=== PATIENT | female | born 1960 | race African-American/Black ===

== ENCOUNTER 2019-04-30 13:20 | Inpatient (IN) | payer MEDICAID ==
[~2019-04-30] VITALS: Ht 172.7 cm; Wt 87.5 kg
[2019-04-30 14:13] LABS: BASOPHILS % 1.1 % (0.0-2.0); EOSINOPHILS % 8.1 % (0.0-5.0); HEMATOCRIT. 50.5 % (36.0-48.0); LYMPHOCYTES % 28.1 % (20.0-50.0); MEAN CORPUSCULAR HEMOGLOBIN 26.3 pg (28.0-32.0); MEAN CORPUSCULAR VOLUME 78.5 fL (81.0-99.0); MONOCYTES % 6.7 % (2.0-8.0); PLATELET 211 x1000/uL (130-400); RED BLOOD CELL COUNT 6.44 mill/uL (4.2-5.4); RED CELL DISTRIBUTION WIDTH 15.2 % (11.6-14.6)
[2019-04-30 14:17] LABS: CHLORIDE 106 mEq/L (98-107); INR 1.1; PROTHROMBIN TIME 11.8 sec (9.6-11.0)
[2019-04-30 14:20] LABS: ETHANOL BLOOD < 10 mg/dL
[2019-04-30] MEDS ORDERED: CLOPIDOGREL 75MG TABLET PO ONE (15:00)
[2019-04-30] MEDS ORDERED: LABETALOL HCL 100MG TABLET PO ONE (15:00)
[2019-04-30] MEDS ORDERED: ASPIRIN 325MG TABLET PO ONE (15:00)
[2019-04-30] MEDS ORDERED: ACETAMINOPHEN 325MG TABLET PO PRN (17:00)
[2019-04-30] MEDS ORDERED: ONDANSETRON HCL 4MG/2ML INJ IV PRN (17:00)
[2019-04-30 17:32] LABS: CLARITY URINE CLOUDY (CLEAR); COLOR URINE YELLOW (YELLOW); KETONES URINE TRACE (NEGATIVE); LEUKOCYTE ESTERASE URINE TRACE (NEGATIVE); NITRITE URINE POSITIVE (NEGATIVE); OCCULT BLOOD URINE NEGATIVE (NEGATIVE); PROTEIN URINE 1+ (NEGATIVE); SPECIFIC GRAVITY URINE 1.017 (1.005-1.030)
[2019-04-30 17:47] LABS: *AMPHETAMINES SCREEN URINE NEGATIVE (NEGATIVE); *BARBITURATES SCREEN URINE NEGATIVE (NEGATIVE); *BENZODIAZEPINES SCREEN URINE NEGATIVE (NEGATIVE); *COCAINE SCREEN URINE NEGATIVE (NEGATIVE); METHADONE URINE SCREEN NEGATIVE (NEGATIVE); OPIATES URINE SCREEN NEGATIVE (NEGATIVE)
[2019-04-30 17:48] LABS: CANNABINOID URINE SCREEN NEGATIVE (NEGATIVE); PHENCYCLIDINE URINE SCREEN NEGATIVE (NEGATIVE)
[2019-04-30 21:45] VITALS: BP 167/75
[2019-04-30 22:23] VITALS: BP 167/75
[2019-04-30] MEDS ORDERED: ASPI-1393 PO (22:28)
[2019-04-30] MEDS ORDERED: BENA20TA10 PO (22:28)
[2019-04-30] MEDS ORDERED: SPIR50TA5 PO (22:28)
[2019-04-30] MEDS ORDERED: NITR0.4T49 SL (22:28)
[2019-04-30] MEDS ORDERED: ATOR40TA70 PO (22:28)
[2019-04-30] MEDS ORDERED: FURO40TA5 PO (22:28)
[2019-04-30] MEDS ORDERED: DIGO125T82 PO (22:28)
[2019-04-30] MEDS ORDERED: FAMO20TA8 PO (22:28)
[2019-04-30] MEDS: ATORVASTATIN CALCIUM 40MG TABLET PO SCH (22:58)
[2019-05-01] VITALS (7 sets, daily range): BP systolic 138–183; BP diastolic 68–86
[2019-05-01] MEDS: CLONIDINE 0.1MG TABLET PO PRN ×2 (05:37→16:47)
[2019-05-01 07:30] LABS: EOSINOPHILS % 12.3 % (0.0-5.0); HEMOGLOBIN. 15.1 g/dL (12.0-16.0); LYMPHOCYTES % 28.6 % (20.0-50.0); MEAN CORPUSCULAR HEMOGLOBIN 26.2 pg (28.0-32.0); MEAN PLATELET VOLUME 7.6 fl (7.4-10.4); MONOCYTES % 9.9 % (2.0-8.0); NEUTROPHILS % 48.2 % (40.0-76.0); PLATELET 190 x1000/uL (130-400); RED BLOOD CELL COUNT 5.77 mill/uL (4.2-5.4); RED CELL DISTRIBUTION WIDTH 15.5 % (11.6-14.6)
[2019-05-01 07:56] LABS: CHLORIDE 106 mEq/L (98-107)
[2019-05-01] MEDS ORDERED: LOSARTAN POTASSIUM 50 MG TABLET PO SCH (08:00)
[2019-05-01] MEDS: ENOXAPARIN 40MG/0.4ML SYR SUBCUT SCH (09:00)
[2019-05-01] MEDS: CLOPIDOGREL 75MG TABLET PO SCH (09:00)
[2019-05-01] MEDS: AMLODIPINE 5MG TABLET PO SCH ×2 (09:00→20:29)
[2019-05-01] MEDS: IBUPROFEN 600MG TABLET PO PRN ×2 (11:15→21:43)
[2019-05-01] MEDS: CEFTRIAXONE 1 G PREMIX 50 ML IV SCH (19:01)
[2019-05-01] MEDS: ATORVASTATIN CALCIUM 40MG TABLET PO SCH (20:29)
[2019-05-02] VITALS: BP 119/64
[2019-05-02 04:00] VITALS: BP 115/63
[2019-05-02 06:51] LABS: CHLORIDE 105 mEq/L (98-107)
[2019-05-02 06:55] LABS: BASOPHILS % 1.1 % (0.0-2.0); EOSINOPHILS % 14.7 % (0.0-5.0); LYMPHOCYTES % 35.8 % (20.0-50.0); MEAN CORPUSCULAR HEMOGLOBIN 26.5 pg (28.0-32.0); MEAN CORPUSCULAR VOLUME 77.8 fL (81.0-99.0); MEAN PLATELET VOLUME 7.9 fl (7.4-10.4); MONOCYTES % 10.1 % (2.0-8.0); NEUTROPHILS % 38.3 % (40.0-76.0); PLATELET 187 x1000/uL (130-400); RED BLOOD CELL COUNT 5.66 mill/uL (4.2-5.4); RED CELL DISTRIBUTION WIDTH 15.3 % (11.6-14.6)
[2019-05-02 08:00] VITALS: BP 163/67
[2019-05-02] MEDS: LOSARTAN POTASSIUM 100 MG TABLET PO SCH (09:23)
[2019-05-02] MEDS: CLOPIDOGREL 75MG TABLET PO SCH (09:23)
[2019-05-02] MEDS: AMLODIPINE 5MG TABLET PO SCH ×2 (09:23→21:23)
[2019-05-02] MEDS: ENOXAPARIN 40MG/0.4ML SYR SUBCUT SCH (09:24)
[2019-05-02 11:36] VITALS: BP 155/72
[2019-05-02 15:42] VITALS: BP 168/79
[2019-05-02] MEDS: IBUPROFEN 600MG TABLET PO PRN (16:23)
[2019-05-02] MEDS: CEFTRIAXONE 1 G PREMIX 50 ML IV SCH (17:35)
[2019-05-02 20:00] VITALS: BP 203/91
[2019-05-02] MEDS: ATORVASTATIN CALCIUM 40MG TABLET PO SCH (21:22)
[2019-05-03] VITALS (7 sets, daily range): BP systolic 151–169; BP diastolic 71–153
[2019-05-03] MEDS: IBUPROFEN 600MG TABLET PO PRN ×2 (05:31→17:20)
[2019-05-03 06:52] LABS: BASOPHILS % 1.2 % (0.0-2.0); EOSINOPHILS % 10.6 % (0.0-5.0); HEMATOCRIT. 48.2 % (36.0-48.0); HEMOGLOBIN. 16.3 g/dL (12.0-16.0); LYMPHOCYTES % 34.1 % (20.0-50.0); MEAN CORPUSCULAR HEMOGLOBIN 26.4 pg (28.0-32.0); MEAN CORPUSCULAR VOLUME 78.1 fL (81.0-99.0); MEAN PLATELET VOLUME 7.8 fl (7.4-10.4); MONOCYTES % 8.4 % (2.0-8.0); NEUTROPHILS % 45.7 % (40.0-76.0); PLATELET 207 x1000/uL (130-400); RED BLOOD CELL COUNT 6.18 mill/uL (4.2-5.4); RED CELL DISTRIBUTION WIDTH 15.4 % (11.6-14.6)
[2019-05-03 07:00] LABS: CHLORIDE 105 mEq/L (98-107)
[2019-05-03] MEDS: AMLODIPINE 5MG TABLET PO SCH (10:00)
[2019-05-03] MEDS: CLOPIDOGREL 75MG TABLET PO SCH (10:00)
[2019-05-03] MEDS: ENOXAPARIN 40MG/0.4ML SYR SUBCUT SCH (10:01)
[2019-05-03] MEDS: LOSARTAN POTASSIUM 100 MG TABLET PO SCH (10:01)
[2019-05-03] MEDS: CEFTRIAXONE 1 G PREMIX 50 ML IV SCH (17:20)
== END 2019-05-03 18:10 | DRG 45 ==
LOC: ER 13:20 → 8WST 16:09 → EDBEDREQTM 16:14 → EDBEDREQ 16:14 → ENRESERV 19:57
PROVIDERS: ADMIT Internal Medicine; ATTEND Internal Medicine
DX: I63.9 Cerebral infarction, unspecified (principal); I11.0 Hypertensive heart disease with heart failure; I50.42 Chronic combined systolic (congestive) and diastolic (congestive) heart failure; G81.94 Hemiplegia, unspecified affecting left nondominant side; G90.8 Other disorders of autonomic nervous system; N39.0 Urinary tract infection, site not specified; Z86.73 Personal history of transient ischemic attack (TIA), and cerebral infarction without residual deficits; Z87.891 Personal history of nicotine dependence; Z79.899 Other long term (current) drug therapy
CPT/HCPCS: 36415; 70544; 70551; 71045; 80048; 80061; 80305; 80320; 83880; 84484; 93005; 93306; 93880; 93970; 97110; 97112; 97163; 97166; 97530; 99291; J0696; J1650; J7050; G0480

== ENCOUNTER 2019-06-03 16:31 | Inpatient (IN) | payer MEDICAID ==
[2019-06-02 23:30] VITALS: BP 151/68
[~2019-06-03] VITALS: Ht 185.4 cm; Wt 80.3 kg
[~2019-06-03 16:31] MED LIST: ASPI-1393 PO; ATOR40TA70 PO; BENA20TA10 PO; DIGO125T82 PO; FAMO20TA8 PO; FURO40TA5 PO; NITR0.4T49 SL; SPIR50TA5 PO
[2019-06-03] MEDS ORDERED: SODIUM CHLORIDE 0.9% 1,000 ML IV ONE (20:06)
[2019-06-03 20:40] LABS: BASOPHILS % 0.7 % (0.0-2.0); HEMATOCRIT. 43.6 % (36.0-48.0); HEMOGLOBIN. 14.7 g/dL (12.0-16.0); LYMPHOCYTES % 38.9 % (20.0-50.0); MEAN CORPUSCULAR HEMOGLOBIN 26.2 pg (28.0-32.0); MEAN CORPUSCULAR VOLUME 77.6 fL (81.0-99.0); MEAN PLATELET VOLUME 7.6 fl (7.4-10.4); MONOCYTES % 8.2 % (2.0-8.0); NEUTROPHILS % 50.2 % (40.0-76.0); PLATELET 216 x1000/uL (130-400); RED BLOOD CELL COUNT 5.62 mill/uL (4.2-5.4); RED CELL DISTRIBUTION WIDTH 17.6 % (11.6-14.6)
[2019-06-03 20:42] LABS: CHLORIDE 105 mEq/L (98-107)
[2019-06-03 21:23] LABS: CLARITY URINE CLOUDY (CLEAR); COLOR URINE YELLOW (YELLOW); KETONES URINE NEGATIVE (NEGATIVE); LEUKOCYTE ESTERASE URINE TRACE (NEGATIVE); NITRITE URINE NEGATIVE (NEGATIVE); OCCULT BLOOD URINE NEGATIVE (NEGATIVE); PH URINE 5.5 (4.5-8.0); PROTEIN URINE NEGATIVE (NEGATIVE); SPECIFIC GRAVITY URINE 1.012 (1.005-1.030)
[2019-06-03] MEDS ORDERED: CEFTRIAXONE 1 G PREMIX 50 ML IV ONE (21:45)
[2019-06-03] MEDS ORDERED: ASPIRIN 325MG EC TABLET PO ONE (21:45)
[2019-06-03] MEDS ORDERED: ONDANSETRON HCL 4MG/2ML INJ IV PRN (23:15)
[2019-06-03 23:30] VITALS: BP 157/68
[2019-06-04] MEDS: SODIUM CHLORIDE 0.9% 1,000 ML IV SCH ×3 (01:12→19:27)
[2019-06-04 04:00] VITALS: BP 165/70
[2019-06-04 08:00] VITALS: BP 110/80
[2019-06-04 08:08] LABS: CREATINE KINASE 59 IU/L (26-192)
[2019-06-04 08:09] LABS: CREATINE KINASE MB FRACTION 1.2 ng/mL (0.5-3.6)
[2019-06-04] MEDS: ENOXAPARIN 40MG/0.4ML SYR SUBCUT SCH (09:13)
[2019-06-04] MEDS: THIAMINE HCL 100MG TABLET PO SCH (09:13)
[2019-06-04 12:00] VITALS: BP 159/64
[2019-06-04 15:53] LABS: CHLORIDE 110 mEq/L (98-107)
[2019-06-04 16:00] VITALS: BP 178/70
[2019-06-04 16:03] LABS: CREATINE KINASE 53 IU/L (26-192)
[2019-06-04 16:06] LABS: CREATINE KINASE MB FRACTION 1.2 ng/mL (0.5-3.6)
[2019-06-04] MEDS: HYDROCODONE/ACETAMINOPHEN 5/325MG TABLET PO PRN (16:22)
[2019-06-04 20:00] VITALS: BP 151/70
[2019-06-05] MEDS: POTASSIUM CHLORIDE 20MEQ TABLET SR PO SCH ×2 (00:22→08:47)
[2019-06-05] MEDS: DIGOXIN 125MCG TABLET PO SCH ×2 (00:22→08:44)
[2019-06-05] MEDS: SPIRONOLACTONE 50MG TABLET PO SCH ×2 (00:22→08:51)
[2019-06-05 00:37] VITALS: BP 169/91
[2019-06-05 04:00] VITALS: BP 165/91
[2019-06-05 06:49] LABS: BASOPHILS % 0.7 % (0.0-2.0); EOSINOPHILS % 2.1 % (0.0-5.0); HEMATOCRIT. 44.2 % (36.0-48.0); HEMOGLOBIN. 15.3 g/dL (12.0-16.0); LYMPHOCYTES % 32.2 % (20.0-50.0); MEAN CORPUSCULAR HEMOGLOBIN 26.8 pg (28.0-32.0); MEAN CORPUSCULAR VOLUME 77.3 fL (81.0-99.0); MEAN PLATELET VOLUME 7.6 fl (7.4-10.4); MONOCYTES % 8.7 % (2.0-8.0); NEUTROPHILS % 56.3 % (40.0-76.0); PLATELET 207 x1000/uL (130-400); RED BLOOD CELL COUNT 5.71 mill/uL (4.2-5.4); RED CELL DISTRIBUTION WIDTH 17.3 % (11.6-14.6)
[2019-06-05 07:30] LABS: CHLORIDE 107 mEq/L (98-107)
[2019-06-05 08:12] VITALS: BP 148/84
[2019-06-05] MEDS: SODIUM CHLORIDE 0.9% 1,000 ML IV SCH ×2 (08:43→18:10)
[2019-06-05] MEDS: THIAMINE HCL 100MG TABLET PO SCH (08:44)
[2019-06-05] MEDS: ENOXAPARIN 40MG/0.4ML SYR SUBCUT SCH (08:44)
[2019-06-05] MEDS: LORAZEPAM 2MG/ML CPJ IV PRN ×2 (08:44→18:11)
[2019-06-05 12:20] VITALS: BP 154/86
[2019-06-05 16:00] VITALS: BP 177/88
[2019-06-05] MEDS: CLOPIDOGREL 75MG TABLET PO SCH (18:22)
[2019-06-05] MEDS: ASPIRIN 81MG TABLET PO SCH (18:22)
[2019-06-05 20:00] VITALS: BP 148/53
[2019-06-05] MEDS: ATORVASTATIN CALCIUM 40MG TABLET PO SCH (21:18)
[2019-06-06] VITALS: BP 159/72
[2019-06-06] MEDS: SODIUM CHLORIDE 0.9% 1,000 ML IV SCH ×3 (01:58→22:04)
[2019-06-06 04:00] VITALS: BP 164/87
[2019-06-06 08:00] VITALS: BP 170/77
[2019-06-06] MEDS: SPIRONOLACTONE 50MG TABLET PO SCH (09:24)
[2019-06-06] MEDS: CLOPIDOGREL 75MG TABLET PO SCH (09:24)
[2019-06-06] MEDS: DIGOXIN 125MCG TABLET PO SCH (09:24)
[2019-06-06] MEDS: POTASSIUM CHLORIDE 20MEQ TABLET SR PO SCH (09:25)
[2019-06-06] MEDS: ASPIRIN 81MG TABLET PO SCH (09:25)
[2019-06-06] MEDS: THIAMINE HCL 100MG TABLET PO SCH (09:25)
[2019-06-06] MEDS: ENOXAPARIN 40MG/0.4ML SYR SUBCUT SCH (09:25)
[2019-06-06 12:00] VITALS: BP 132/65
[2019-06-06 16:00] VITALS: BP 153/79
[2019-06-06 20:00] VITALS: BP 159/74
[2019-06-06] MEDS: ATORVASTATIN CALCIUM 40MG TABLET PO SCH (21:21)
[2019-06-06] MEDS: HYDROCODONE/ACETAMINOPHEN 5/325MG TABLET PO PRN (21:22)
[2019-06-07] VITALS: BP 168/75
[2019-06-07 04:00] VITALS: BP 172/87
[2019-06-07] MEDS: SODIUM CHLORIDE 0.9% 1,000 ML IV SCH (06:22)
[2019-06-07 08:00] VITALS: BP 180/84
[2019-06-07] MEDS: ENOXAPARIN 40MG/0.4ML SYR SUBCUT SCH (09:18)
[2019-06-07] MEDS: SPIRONOLACTONE 50MG TABLET PO SCH (09:18)
[2019-06-07] MEDS: CLOPIDOGREL 75MG TABLET PO SCH (09:19)
[2019-06-07] MEDS: ASPIRIN 81MG TABLET PO SCH (09:19)
[2019-06-07] MEDS: THIAMINE HCL 100MG TABLET PO SCH (09:19)
[2019-06-07] MEDS: POTASSIUM CHLORIDE 20MEQ TABLET SR PO SCH (09:19)
[2019-06-07] MEDS: DIGOXIN 125MCG TABLET PO SCH (09:22)
[2019-06-07] MEDS: HYDROCODONE/ACETAMINOPHEN 5/325MG TABLET PO PRN (11:34)
[2019-06-07 12:00] VITALS: BP 172/79
[2019-06-07 15:47] LABS: BASOPHILS % 0.6 % (0.0-2.0); HEMATOCRIT. 46.5 % (36.0-48.0); HEMOGLOBIN. 16.2 g/dL (12.0-16.0); LYMPHOCYTES % 37.2 % (20.0-50.0); MEAN CORPUSCULAR HEMOGLOBIN 26.9 pg (28.0-32.0); MEAN CORPUSCULAR VOLUME 77.2 fL (81.0-99.0); MEAN PLATELET VOLUME 7.5 fl (7.4-10.4); MONOCYTES % 8.1 % (2.0-8.0); NEUTROPHILS % 52.1 % (40.0-76.0); PLATELET 226 x1000/uL (130-400); RED BLOOD CELL COUNT 6.02 mill/uL (4.2-5.4); RED CELL DISTRIBUTION WIDTH 17.6 % (11.6-14.6)
[2019-06-07 15:56] LABS: CHLORIDE 103 mEq/L (98-107)
[2019-06-07 16:00] VITALS: BP 165/94
[2019-06-07 16:17] LABS: DIGOXIN 0.6 ng/mL (0.9-2.0)
[2019-06-07 17:06] VITALS: BP 165/94
== END 2019-06-07 20:05 | DRG 45 ==
LOC: ER 16:31 → 6WST 21:48 → EDBEDREQTM 21:55 → EDBEDREQ 21:55 → ENRESERV 22:08 → SUPCPDRO 23:13
PROVIDERS: ADMIT Internal Medicine Nephrology; ATTEND Internal Medicine Nephrology
DX: I63.9 Cerebral infarction, unspecified (principal); G93.41 Metabolic encephalopathy; I11.0 Hypertensive heart disease with heart failure; E78.00 Pure hypercholesterolemia, unspecified; E87.6 Hypokalemia; Z86.73 Personal history of transient ischemic attack (TIA), and cerebral infarction without residual deficits; W19.XXXA Unspecified fall, initial encounter; Y92.009 Unspecified place in unspecified non-institutional (private) residence as the place of occurrence of the external cause
CPT/HCPCS: 36415; 70551; 71045; 80048; 80162; 82550; 82553; 83880; 84484; 93005; 96365; 97162; 99285; J0696; J1650; J2060; J2405; J7030

== ENCOUNTER 2019-06-15 20:07 | Inpatient (IN) | payer MEDICAID ==
[~2019-06-15] VITALS: Ht 170.2 cm; Wt 78.2 kg
[2019-06-15 22:46] LABS: EOSINOPHILS % 1.9 % (0.0-5.0); HEMATOCRIT. 39.9 % (36.0-48.0); HEMOGLOBIN. 13.7 g/dL (12.0-16.0); LYMPHOCYTES % 28.9 % (20.0-50.0); MEAN CORPUSCULAR HEMOGLOBIN 26.8 pg (28.0-32.0); MEAN PLATELET VOLUME 7.4 fl (7.4-10.4); NEUTROPHILS % 59.2 % (40.0-76.0); PLATELET 239 x1000/uL (130-400); RED BLOOD CELL COUNT 5.12 mill/uL (4.2-5.4); RED CELL DISTRIBUTION WIDTH 18.3 % (11.6-14.6)
[2019-06-15 22:52] LABS: CHLORIDE 101 mEq/L (98-107)
[2019-06-16] VITALS (7 sets, daily range): BP systolic 103–156; BP diastolic 63–74
[2019-06-16] MEDS ORDERED: ACETAMINOPHEN 325MG TABLET PO PRN (01:00)
[2019-06-16] MEDS ORDERED: HYDROCODONE/ACETAMINOPHEN 5/325MG TABLET PO PRN (01:00)
[2019-06-16] MEDS ORDERED: DOCUSATE SODIUM 100MG CAPSULE PO PRN (01:00)
[2019-06-16] MEDS ORDERED: ONDANSETRON HCL 4MG/2ML INJ IV PRN (01:00)
[2019-06-16] MEDS ORDERED: IPRATROPIUM/ALBUTEROL 0.5-3(2.5)MG/3ML NEB INH PRN (01:00)
[2019-06-16] MEDS ORDERED: MAGNESIUM/ALUMINUM HYDROXIDE/SIMETHICONE 30ML UDC PO PRN (01:00)
[2019-06-16] MEDS: CLONIDINE 0.1MG TABLET PO PRN (08:11)
[2019-06-16] MEDS: ASPIRIN 81MG EC TABLET PO SCH (08:11)
[2019-06-16] MEDS: ENOXAPARIN 40MG/0.4ML SYR SUBCUT SCH (08:16)
[2019-06-16 10:23] LABS: BASOPHILS % 0.6 % (0.0-2.0); EOSINOPHILS % 2.5 % (0.0-5.0); HEMATOCRIT. 39.1 % (36.0-48.0); HEMOGLOBIN. 13.4 g/dL (12.0-16.0); LYMPHOCYTES % 31.9 % (20.0-50.0); MEAN CORPUSCULAR HEMOGLOBIN 26.9 pg (28.0-32.0); MEAN CORPUSCULAR VOLUME 78.7 fL (81.0-99.0); MEAN PLATELET VOLUME 7.3 fl (7.4-10.4); MONOCYTES % 9.9 % (2.0-8.0); NEUTROPHILS % 55.1 % (40.0-76.0); PLATELET 211 x1000/uL (130-400); RED BLOOD CELL COUNT 4.97 mill/uL (4.2-5.4); RED CELL DISTRIBUTION WIDTH 18.6 % (11.6-14.6)
[2019-06-16 10:46] LABS: LDL CHOLESTEROL 55 mg/dL (5-100)
[2019-06-16 10:48] LABS: CREATINE KINASE 59 IU/L (26-192)
[2019-06-16 10:49] LABS: HDL CHOLESTEROL 38 mg/dL (40-59)
[2019-06-16 11:01] LABS: CLARITY URINE CLEAR (CLEAR); COLOR URINE YELLOW (YELLOW); KETONES URINE NEGATIVE (NEGATIVE); LEUKOCYTE ESTERASE URINE TRACE (NEGATIVE); NITRITE URINE NEGATIVE (NEGATIVE); OCCULT BLOOD URINE NEGATIVE (NEGATIVE); PH URINE 5.5 (4.5-8.0); PROTEIN URINE NEGATIVE (NEGATIVE)
[2019-06-16 11:28] LABS: *BARBITURATES SCREEN URINE NEGATIVE (NEGATIVE); *BENZODIAZEPINES SCREEN URINE NEGATIVE (NEGATIVE); *COCAINE SCREEN URINE NEGATIVE (NEGATIVE)
[2019-06-16 11:29] LABS: CANNABINOID URINE SCREEN NEGATIVE (NEGATIVE); METHADONE URINE SCREEN NEGATIVE (NEGATIVE); OPIATES URINE SCREEN NEGATIVE (NEGATIVE); PHENCYCLIDINE URINE SCREEN NEGATIVE (NEGATIVE)
[2019-06-16 11:44] LABS: *AMPHETAMINES SCREEN URINE NEGATIVE (NEGATIVE)
[2019-06-16 18:24] LABS: CREATINE KINASE 50 IU/L (26-192)
[2019-06-16 18:25] LABS: CREATINE KINASE MB FRACTION 1.4 ng/mL (0.5-3.6)
[2019-06-17] VITALS: BP 176/87
[2019-06-17] MEDS: CLONIDINE 0.1MG TABLET PO PRN (01:05)
[2019-06-17 04:00] VITALS: BP 190/84
[2019-06-17] MEDS ORDERED: HYDRALAZINE 20MG/ML VIAL IV PRN (05:30)
[2019-06-17 07:26] LABS: BASOPHILS % 0.8 % (0.0-2.0); EOSINOPHILS % 1.9 % (0.0-5.0); HEMATOCRIT. 42.6 % (36.0-48.0); LYMPHOCYTES % 28.4 % (20.0-50.0); MEAN CORPUSCULAR HEMOGLOBIN 26.9 pg (28.0-32.0); MEAN CORPUSCULAR VOLUME 76.3 fL (81.0-99.0); MEAN PLATELET VOLUME 7.3 fl (7.4-10.4); MONOCYTES % 8.7 % (2.0-8.0); NEUTROPHILS % 60.2 % (40.0-76.0); PLATELET 255 x1000/uL (130-400); RED BLOOD CELL COUNT 5.58 mill/uL (4.2-5.4); RED CELL DISTRIBUTION WIDTH 18.7 % (11.6-14.6)
[2019-06-17 07:36] LABS: CHLORIDE 104 mEq/L (98-107)
[2019-06-17 08:00] VITALS: BP 146/73
[2019-06-17] MEDS: ASPIRIN 81MG EC TABLET PO SCH (08:45)
[2019-06-17] MEDS: ENOXAPARIN 40MG/0.4ML SYR SUBCUT SCH (08:46)
[2019-06-17 12:00] VITALS: BP 138/71
[2019-06-17 16:00] VITALS: BP 147/67
[2019-06-17] MEDS: AMLODIPINE 5MG TABLET PO SCH ×2 (17:18→20:42)
[2019-06-17 20:00] VITALS: BP 159/78
[2019-06-18] VITALS: BP 156/78
[2019-06-18 04:00] VITALS: BP 165/65
[2019-06-18 08:00] VITALS: BP 136/84
[2019-06-18] MEDS: ASPIRIN 81MG EC TABLET PO SCH (09:53)
[2019-06-18] MEDS: AMLODIPINE 5MG TABLET PO SCH (09:53)
[2019-06-18 11:26] VITALS: BP 130/80
[2019-06-18] MEDS ORDERED: LOSARTAN POTASSIUM 25 MG TABLET PO SCH (11:30)
[2019-06-18] MEDS: ENOXAPARIN 40MG/0.4ML SYR SUBCUT SCH (11:40)
[2019-06-18 12:00] VITALS: BP 163/83
== END 2019-06-18 14:00 | DRG 45 ==
LOC: ER 20:07 → 5WST 23:21 → ENRESERV 06-16 00:12
PROVIDERS: ADMIT Internal Medicine; ATTEND Internal Medicine
DX: I63.9 Cerebral infarction, unspecified (principal); I11.0 Hypertensive heart disease with heart failure; E87.1 Hypo-osmolality and hyponatremia; F03.90 Unspecified dementia, unspecified severity, without behavioral disturbance, psychotic disturbance, mood disturbance, and anxiety; I50.32 Chronic diastolic (congestive) heart failure; G81.94 Hemiplegia, unspecified affecting left nondominant side; J44.9 Chronic obstructive pulmonary disease, unspecified; I25.10 Atherosclerotic heart disease of native coronary artery without angina pectoris; Z79.02 Long term (current) use of antithrombotics/antiplatelets; Z87.891 Personal history of nicotine dependence; I34.0 Nonrheumatic mitral (valve) insufficiency
CPT/HCPCS: 36415; 71045; 80048; 80061; 80305; 81003; 82550; 82553; 83735; 83880; 84443; 84484; 93005; 93306; 93970; 99285; J0360; J1650

== ENCOUNTER 2020-08-09 04:43 | Emergency (ER) | payer MEDICAID ==
[~2020-08-09] VITALS: Ht 175.3 cm; Wt 76.0 kg
[~2020-08-09 04:43] MED LIST changes: -ASPI-1393 PO; +ASPI-1497 PO; +DIGO125T80 PO; -DIGO125T82 PO
[2020-08-09] MEDS ORDERED: METHYLPREDNISOLONE SOD SUCC 125 MG/2 ML VIAL IM ONE (08:45)
[2020-08-09] MEDS ORDERED: LORATADINE 10MG TABLET PO SCH (09:00)
[2020-08-09] MEDS ORDERED: ONDANSETRON 4MG ODT PO ONE (10:00)
[2020-08-09 12:34] LABS: BASOPHILS % 0.2 % (0.0-2.0); EOSINOPHILS % 0.1 % (0.0-5.0); HEMATOCRIT. 43.6 % (36.0-48.0); HEMOGLOBIN. 15.1 g/dL (12.0-16.0); LYMPHOCYTES % 10.3 % (20.0-50.0); MEAN CORPUSCULAR HEMOGLOBIN 29.2 pg (28.0-32.0); MEAN CORPUSCULAR VOLUME 84.1 fL (81.0-99.0); MEAN PLATELET VOLUME 7.8 fl (7.4-10.4); MONOCYTES % 2.6 % (2.0-8.0); NEUTROPHILS % 86.8 % (40.0-76.0); PLATELET 238 x1000/uL (130-400); RED BLOOD CELL COUNT 5.18 mill/uL (4.2-5.4); RED CELL DISTRIBUTION WIDTH 12.9 % (11.6-14.6)
[2020-08-09 12:48] LABS: CHLORIDE 103 mEq/L (98-107)
[2020-08-09 12:57] VITALS: BP 161/77
== END 2020-08-09 12:50 | disposition home or self-care (01) ==
LOC: ER 05:15
DX: T78.40XA Allergy, unspecified, initial encounter (principal); I10 Essential (primary) hypertension; X58.XXXA Exposure to other specified factors, initial encounter
CPT/HCPCS: 36415; 80048; 85025; 96372; 99283; J2930; Q0162

== ENCOUNTER 2020-09-01 14:04 | Emergency (ER) | payer MEDICAID ==
[~2020-09-01] VITALS: Ht 175.3 cm; Wt 54.0 kg
[2020-09-01 17:05] LABS: BASOPHILS % 1.2 % (0.0-2.0); EOSINOPHILS % 3.1 % (0.0-5.0); HEMATOCRIT. 38.6 % (36.0-48.0); HEMOGLOBIN. 13.2 g/dL (12.0-16.0); LYMPHOCYTES % 34.9 % (20.0-50.0); MEAN CORPUSCULAR HEMOGLOBIN 28.2 pg (28.0-32.0); MEAN CORPUSCULAR VOLUME 82.4 fL (81.0-99.0); MEAN PLATELET VOLUME 7.1 fl (7.4-10.4); MONOCYTES % 8.1 % (2.0-8.0); NEUTROPHILS % 52.7 % (40.0-76.0); PLATELET 412 x1000/uL (130-400); RED BLOOD CELL COUNT 4.69 mill/uL (4.2-5.4); RED CELL DISTRIBUTION WIDTH 13.3 % (11.6-14.6)
[2020-09-01 17:13] LABS: CHLORIDE 105 mEq/L (98-107)
[2020-09-01] MEDS ORDERED: SPIRONOLACTONE 50MG TABLET PO STA (20:48)
[2020-09-01] MEDS ORDERED: DIGOXIN 125MCG TABLET PO ONE (21:00)
[2020-09-01] MEDS ORDERED: BENAZEPRIL 10MG TABLET PO ONE (21:00)
[2020-09-01] MEDS ORDERED: FUROSEMIDE 40MG TABLET PO ONE (21:00)
[2020-09-01 22:01] VITALS: BP 168/88
== END 2020-09-01 22:00 | disposition home or self-care (01) ==
LOC: ER 14:04
DX: I11.0 Hypertensive heart disease with heart failure (principal); I50.9 Heart failure, unspecified; E78.5 Hyperlipidemia, unspecified; Z86.73 Personal history of transient ischemic attack (TIA), and cerebral infarction without residual deficits; Z79.899 Other long term (current) drug therapy; Z79.82 Long term (current) use of aspirin
CPT/HCPCS: 36415; 80053; 83880; 85025; 93005; 99284